=== PATIENT | female | born 1990 | race African-American/Black ===

== ENCOUNTER 2017-08-26 20:53 | Emergency (ER) | payer OTHER ==
[~2017-08-26] VITALS: Ht 165.1 cm; Wt 74.4 kg
--- NOTE | 2017-08-26 22:09 | ED INFLUENZA/URI COMPLAINT ---
History of Present Illness General Chief Complaint: General Adult Stated Complaint: "FLU LIKE SYMPTOMS, NAUSEA, SORE THROAT" PER PT Source: patient, family Exam Limitations: no limitations Vital Signs & Intake/Output Vital Signs & Intake/Output Vital Signs Date Time Temp Pulse Resp B/P B/P Pulse O2 O2 Flow FiO2 Mean Ox Delivery Rate 08/26 2300 97.0 88 18 130/75 98 Room Air 08/26 2101 98.3 90 18 150/81 98 Room Air ED Intake and Output 08/27 0000 08/26 1200 Intake Total 0 Output Total Balance 0 Intake, Oral 0 Patient 164 lb Weight Allergies Coded Allergies: No Known Allergies (08/26/17) Reconcile Medications Methylprednisolone. (Medrol) 4 MG TAB.DS.PK 1 DP PO AD PHARYNGITIS 6 on day 1 then reduce by one tablet daily until gone Triage Note: PRESENTS TO ED WITIH SORE THROAT, BODY ACHES AND NAUSEA. ALSO REPORTS SHOOTING LOWER BACK PAIN. ALL THIS SYMPTOMS BEGAN YESTERDAY WITH NO IMRPROVEMT SINCE. Triage Nurses Notes Reviewed? yes : No Patient currently breastfeeds: No HPI: Patient presents with subjective fevers and chills, sore throat, nasal congestion and a nonproductive cough all since yesterday. There is no anorexia. There is no nausea or vomiting. Patient has been taking NyQuil. Positive myalgias. Patient states that her throat feels very scratchy. Patient denies any difficulty swallowing or breathing. Past History Travel History Traveled to [place] past 21 day No Medical History Any Pertinent Medical History? none Surgical History Surgical History: non-contributory Psychosocial History What is your primary language Spanish Tobacco Use: Never used ETOH Use: occasional use Illicit Drug Use: denies illicit drug use Family History Hx Contributory? No Review of Systems Review of Systems Constitutional: Reports: see HPI, chills, fever. EENTM: Reports: see HPI, nasal congestion, throat pain. Respiratory: Reports: see HPI, cough. Cardiovascular: Reports: no symptoms. GI: Reports: no symptoms. Genitourinary: Reports: no symptoms. Musculoskeletal: Reports: no symptoms. Skin: Reports: no symptoms. Neurological/Psychological: Reports: no symptoms. Hematologic/Endocrine: Reports: no symptoms. Immunologic/Allergic: Reports: no symptoms. All Other Systems: Reviewed and Negative Physical Exam Physical Exam General Appearance: well developed/nourished, alert, awake, anxious, mild distress Head: atraumatic, normal appearance Eyes: Bilateral: PERRL, EOMI. Ears, Nose, Throat: normal ENT inspection, moist mucous membrane, hearing grossly normal Neck: normal inspection, supple, full range of motion Respiratory: normal breath sounds, chest non-tender, no respiratory distress, lungs clear Cardiovascular: regular rate/rhythm, normal peripheral pulses Gastrointestinal: normal bowel sounds, soft, non-tender, no organomegaly Back: normal inspection, normal range of motion Extremities: normal inspection, normal capillary refill, normal range of motion, no edema Neurologic/Psych: no motor/sensory deficits, awake, alert, oriented x 3, normal gait, normal mood/affect Skin: intact, normal color, warm/dry Lymphatic: no anterior cervical yehuda Core Measures Sepsis Present: No Sepsis Focused Exam Completed? No Progress Differential Diagnosis: influenza, pharyngitis, sinusitis Plan of Care: Orders Procedure Date/time Status THROAT CULTURE W/QUICK STREP 08/27 2207 Active Initial ED EKG: none Departure Departure Disposition: HOME OR SELF CARE Condition: Stable Clinical Impression Primary Impression: Pharyngitis Referrals: Patient Has No Primary Care Dr (PCP/Family) Additional Instructions: DRINK PLENTY OF FLUIDS IF SYMPTOMS WORSEN, START THE STEROIDS RETURN IF SYMPTOMS WORSEN OR FOR ANY CONCERNS Departure Forms: Customer Survey General Discharge Information Prescriptions: Current Visit Scripts Methylprednisolone. (Medrol) 1 DP PO AD #1 DP 6 on day 1 then reduce by one tablet daily until gone
[2017-08-26 23:00] VITALS: BP 130/75
[2017-08-26] MEDS ORDERED: MEDROL4 M2 PO (23:36)
== END 2017-08-26 23:54 ==
LOC: ERH 20:53
DX: J02.9 Acute pharyngitis, unspecified (principal)